=== PATIENT | male | born 1970 | race Caucasian/White ===

== ENCOUNTER 2016-05-27 22:40 | Emergency (ER) | payer SELFPAY ==
[~2016-05-27] VITALS: Ht 157.4 cm; Wt 99.8 kg
[~2016-05-27 22:40] MED LIST: LORCET1 TAB PO; MOTRIN800 MG PO
[2016-05-27 23:13] LABS: HEMATOCRIT 46.4 % (42.0-52.0); HEMOGLOBIN 15.1 g/dl (14.0-18.0); MEAN CELL VOLUME 96.9 fl (80.0-94.0); MEAN CORPUSCULAR HGB 31.5 pg (27.0-31.0); MEAN CORPUSCULAR HGB CONC 32.5 g/dl (33.0-37.0); MEAN PLATELET VOLUME 10.2 fl (9.6-12.3); PLATELET COUNT AUTOMATED 262 10*3/uL (130-400); RED BLOOD COUNT 4.79 10*6/uL (4.50-5.90); WHITE BLOOD COUNT 19.2 10*3/uL (4.8-10.8)
[2016-05-27 23:24] LABS: INTERNATIONAL NORM RATIO 1.1 (2.0-3.5); PROTHROMBIN TIME 11.3 SECONDS (9.0-12.4)
[2016-05-27 23:31] LABS: ALBUMIN 3.5 gm/dl (3.1-4.5); ALKALINE PHOSPHATASE 73 U/L (45-117); BILIRUBIN, TOTAL 0.3 mg/dl (0.2-1.0); BUN 10 mg/dl (7-24); CARBON DIOXIDE 23 mmol/L (21-32); CHLORIDE 106 mmol/L (98-107); EST GLOM FILT AFRICAN AMERICAN > 60 ml/min; GLUCOSE 211 mg/dL (65-99); MAGNESIUM 2.4 mg/dL (1.5-2.1); POTASSIUM 3.6 mmol/L (3.5-5.1); SGOT/AST 81 IU/L (3-35); SGPT/ALT 110 U/L (12-78); SODIUM 143 mmol/L (136-145); TOTAL PROTEIN 7.6 gm/dL (6.4-8.2); TROPONIN I 0.211 ng/ml (<0.5)
[2016-05-27 23:36] LABS: ATYPICAL LYMPHS 1 % (0-0); EOSINOPHIL # 0.6 10*3/uL (0-0.4); EOSINOPHILS 3 % (1-4); LYMPHOCYTE # 6.3 10*3/uL (1.3-4.4); MONOCYTE # 1.2 10*3/uL (0.1-1.0); NEUTROPHIL # 11.1 10*3/uL (2.3-7.9); NEUTROPHILS 58 % (47-73); PLATELET SUFFICIENCY NORMAL (NORMAL); TOTAL CELLS COUNTED 100 #CELLS
== END 2016-05-28 02:17 | disposition short-term general hospital (02) ==
LOC: ED 22:40
PROVIDERS: Emergency Medicine Emergency Medical Services
DX: I21.3 ST elevation (STEMI) myocardial infarction of unspecified site (principal); R07.9 Chest pain, unspecified